=== PATIENT | male | born 2000 | race African-American/Black ===

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

== ENCOUNTER 2023-05-11 09:43 | Emergency (ER) | payer MEDICAID, OTHER ==
[~2023-05-11] VITALS: Ht 175.3 cm; Wt 66.0 kg
[2023-05-11 09:52] VITALS: O2SAT 97
[2023-05-11] MEDS ORDERED: AMOXICILLIN/POTASSIUM CLAVULANATE 875/125MG TAB PO ONE (10:00)
[2023-05-11] MEDS ORDERED: IBUPROFEN 600MG TABLET PO ONE (10:00)
[2023-05-11] MEDS ORDERED: AMOX1TAB16 MT (10:59)
[2023-05-11 11:17] VITALS: BP 112/68; PULSE 76; RESP 16; TEMP 98.3
== END 2023-05-11 11:18 | disposition home or self-care (01) ==
LOC: ER 09:43
DX: J02.9 Acute pharyngitis, unspecified (principal)
CPT/HCPCS: 99283